=== PATIENT | female | born 1955 | race Caucasian/White ===

== ENCOUNTER → 2019-12-19 08:12 | Outpatient (CLI) | payer BC, SELFPAY ==
--- NOTE | 2019-12-19 08:14 | CT_ITS ---
PROCEDURE: CT LUNG SCREENING CLINICAL INDICATION: CURRENT TOBACO USE Thirty pack-year smoking history, asymptomatic for lung cancer COMPARISON: No exams were available for comparison TECHNIQUE: The exam was performed on a GE Light Speed [address] scanner using 2.90 mGy CTDI. A low dose helical CT CHEST was performed on a multi-detector scanner. All CT scans at the facility use one or more dose reduction, viz: automated exposure control, ma/kV adjustment per patient size (including targeted exams where dose is matched to indication, i.e. head), or iterative reconstruction technique. The LDCT was performed in a facility that meets the criteria for the screening program. Data regarding this exam was submitted to [employer] which is an approved registry. The order for this exam indicates that it came as a result of a lung cancer screening counseling shard decision-making visit that included all the elements required of such a visit including smoking cessation. The radiologist interpreting this exam meets the [facility] criteria for the LDCT lung cancer screening program. The exam is reported using the Lung-RADS classification scale and reported to the ACR registry. NOTE: This study was performed for the specific purposes of lung cancer screening and is not an alternative to diagnostic chest CT. RADIATION DOSE: CTDI vol(CT dose Index-volume) = 2.90mG DLP (Dose Length Product) = 99.77 mGcm FINDINGS: COPD with centrilobular emphysema. 3 mm noncalcified nodule right upper lobe series 4, image 43. 4 mm noncalcified nodule right upper lobe series 4, image 31. Atelectatic or fibrotic changes within the lower lobes. OTHER FINDINGS: No other pertinent findings evident. IMPRESSION: Lung rads category 2 benign findings. COPD with centrilobular emphysema Recommend 12 month LDCT follow-up Dictated by: Sebastian Jennings MD 12/23/2019 14:02 Electronically signed by Sebastian Jennings MD in [place] 12/23/2019 14:02
== END ==
PROVIDERS: PCP Internal Medicine Adolescent Medicine; Visit Provider Internal Medicine Adolescent Medicine
DX: Z87.891 Personal history of nicotine dependence (principal); Z12.2 Encounter for screening for malignant neoplasm of respiratory organs

== ENCOUNTER → 2020-03-19 09:37 | Outpatient (CLI) | payer BC, SELFPAY ==
--- NOTE | 2020-03-19 09:43 | XR_ITS ---
PROCEDURE: XR DEXA AXIAL SKELETON CLINICAL HISTORY: MODERATE OSTEOPENIA COMPARISON: No exams were available for comparison FINDINGS: Total right femur density is 0.625 grams/centimeters sq with a T-score of -2.6 Total left femur density is 0.619 grams/centimeters sq with T-score -2.6 L1-L4 density is 1.203 grams/centimeters sq with a T-score of 1.4 IMPRESSION: Osteoporosis with high fracture risk. Treatment advised. Suggest follow-up exam in 1 year Dictated by: Sebastian Jennings MD 03/22/2020 05:40 Electronically signed by Sebastian Jennings MD in [place] 03/22/2020 05:40
== END ==
PROVIDERS: PCP Internal Medicine Adolescent Medicine; Visit Provider Internal Medicine Adolescent Medicine
DX: M85.89 Other specified disorders of bone density and structure, multiple sites (principal)
CPT/HCPCS: 77080

== ENCOUNTER → 2020-06-21 09:18 | Outpatient (CLI) | payer BC, SELFPAY ==
--- NOTE | 2020-06-21 09:23 | MM_ITS ---
PROCEDURE: MM DIG SCREENING MAMM BI W/CAD Referring Doctor: Chi Pimentel Patient Age:64Y CLINICAL INDICATION: SCREENING no hormones but no new complaints. Family history: Maternal grandmother breast cancer age 80 COMPARISON: MG MAMMOGRAM DIGITAL SCREEN from 04/14/2010 MG MAMMO Digital Screening Bilateral from 09/11/2011 MG MAMMO Digital Screening Bilateral from 11/04/2012 MG MAMMO Digital Screening Bilateral from 02/02/2014 MG MAMMO Digital Screening Bilateral from 02/21/2015 MG MAMMO Digital Screening Bilateral from 03/20/2016 MG MAMMO Digital Screening Bilateral from 05/07/2017 MG MAMMO Digital Screening Bilateral from 05/17/2018 MG 3DSCRNBIL from 05/18/2019 TECHNIQUE: Standard CC and MLO images were obtained. R2 CAD reviewed. Bilateral digital breast tomosynthesis included. FINDINGS: . Moderate density heterogeneous breast bilaterally with stable mild asymmetric and architecture. Prior films are helpful in supporting stability of overall appearance and the stable mild asymmetry. No new dominant or suspicious mass. No suspicious calcifications. CAD highlights no areas of concern either breast Right breast: No new findings of significant concern Small area focal fibroglandular tissue seen on MLO view deep breast likely located laterally appears similar 2018, 2016, with similar area of density even back to 2012, 2010 MLO view... Also note overlapping densities appear contributing this overall area mild asymmetric density MLO tomosynthesis image set. The right CC view appears similar and stable since 2016 2014 cc view studies; overall no new focal area of significant concern. Overall follow-up 1 year adequate Left breast: No new areas of concern. Stable left mammogram. However follow-up 1 year left breast would be emphasized and encouraged. IMPRESSION: Stable bilateral mammogram Right breast: Stable with no new findings of significant concern . Left breast, stable. follow-up mammogram in 1 year recommended and would be encouraged, to further support stability in this moderately dense heterogeneous breast BI-RAD Category: 2 Benign Finding(s) FOLLOW-UP: 1YR 1 Year Follow-up Follow-up not over 1 year recommended (A letter has been sent to the patient regarding results of the study.) Dictated by: Fab Garcia MD 06/27/2020 12:06 Fab Garcia MD in [place] 06/27/2020 12:06
== END ==
PROVIDERS: PCP Internal Medicine Adolescent Medicine; Visit Provider Internal Medicine Adolescent Medicine
DX: Z12.31 Encounter for screening mammogram for malignant neoplasm of breast (principal)
CPT/HCPCS: 77063; 77067

== ENCOUNTER → 2020-08-20 10:46 | Outpatient (CLI) | payer BC, SELFPAY ==
[2020-08-21 09:05] LABS: Covid-19 Nasal PCR Sendout Lex NOT DETECTED
== END ==
PROVIDERS: PCP Internal Medicine Adolescent Medicine; Visit Provider Internal Medicine Adolescent Medicine
DX: Z03.818 Encounter for observation for suspected exposure to other biological agents ruled out (principal); R05 Cough
CPT/HCPCS: U0004

== ENCOUNTER → 2020-12-20 13:07 | Outpatient (CLI) | payer BC, SELFPAY ==
[2020-12-20 13:29] LABS: Basophils # 0.1 K/mm3 (0-0.2); Basophils % 0.9 % (0.1-2.0); Eosinophils # 0.4 K/mm3 (0.0-0.4); Eosinophils % 4.8 % (0.1-12.0); Hematocrit 47.9 % (37.0-47.0); Hemoglobin 16.2 g/dL (12.2-16.2); Lymphocytes # 2.5 K/mm3 (0.7-4.5); Mean Corpuscular HGB Conc 33.8 g/dL (31.8-35.4); Mean Corpuscular Hemoglobin 34.1 pg (27.0-31.2); Mean Corpuscular Volume 100.9 fl (81-99); Mean Platelet Volume 8.2 fl (7.4-10.4); Monocytes # 0.6 K/mm3 (0.1-1.0); Monocytes % 7.8 % (1.7-9.3); Neutrophils % 53.4 % (37.0-80.0); Platelet Count 261 K/mm3 (142-424); Red Blood Count 4.75 M/mm3 (4.20-5.40); Red Cell Distribution Width 13.2 % (11.5-17.5); White Blood Count 7.4 K/mm3 (4.8-10.8)
[2020-12-20 14:08] LABS: Chloride 102 mmol/L (98-107); Potassium 4.7 mmoL/L (3.5-5.1); Sodium 138 mmol/L (136-145)
[2020-12-20 14:11] LABS: Alanine Aminotransferase 16 U/L (12-78); Albumin Level 4.8 g/dl (3.5-5.0); Albumin/Globulin Ratio 1.5 (1.1-1.8); Alkaline Phosphatase 112 U/L (38-126); Anion Gap 9.7 mEq/L (5-15); Aspartate Amino Transferase 29 U/L (14-36); Bilirubin,Total 0.7 mg/dl (0.2-1.3); Blood Urea Nitrogen 15 mg/dl (7-17); Calcium 11.2 mg/dl (8.4-10.2); Carbon Dioxide 31 mmol/L (22.0-30.0); Estimated Glomerular Filt Rate 63 ml/min (>60); GFR (African American) 76 ML/MIN (>60); Globulin 3.2 g/dL (1.3-3.2); Glucose 101 mg/dl (74-100)
[2020-12-20 14:29] LABS: 25-OH Vitamin D, Total 55.2 ng/mL (30-100)
[2020-12-20 14:42] LABS: Thyroid Stimulating Hormone 6.43 uIU/mL (0.465-4.68)
== END ==
PROVIDERS: Visit Provider Internal Medicine Adolescent Medicine
DX: I10 Essential (primary) hypertension (principal); E03.9 Hypothyroidism, unspecified; M81.0 Age-related osteoporosis without current pathological fracture
CPT/HCPCS: 36415; 80053; 82306; 84443; 85025

== ENCOUNTER → 2021-09-11 10:18 | Outpatient (CLI) | payer BC, SELFPAY ==
--- NOTE | 2021-09-11 10:21 | MM_ITS ---
PROCEDURE INFORMATION: Exam: MG Bilateral Screening 3D Mammography Exam date and time: 09/11/2021 10:21 AM Age: 65 years old Clinical indication: Encounter for screening mammogram for malignant neoplasm of breast TECHNIQUE: Imaging protocol: Bilateral screening tomosynthesis and 2D mammography including computer-aided detection (CAD) when performed. COMPARISON: 1. MG MM DIG SCREENING MAMM BI W/CAD 06/21/2020 9:40 AM 2. MG 3DSCRNBIL 05/18/2019 10:54 AM FINDINGS: MAMMOGRAPHY: Breast composition: The breast tissue is composed of scattered areas of fibroglandular density. Mass: None. Architectural distortion: None. Calcifications: No suspicious calcifications. Asymmetric density: None. Skin thickening: None. Axillary adenopathy: None. IMPRESSION: No mammographic evidence of malignancy. Annual screening is recommended unless otherwise clinically indicated. ASSESSMENT: BI-RADS Category 1: Negative
== END ==
PROVIDERS: PCP Internal Medicine Adolescent Medicine; Visit Provider Internal Medicine Adolescent Medicine
DX: Z12.31 Encounter for screening mammogram for malignant neoplasm of breast (principal)
CPT/HCPCS: 77063; 77067

== ENCOUNTER → 2022-01-28 08:16 | Outpatient (CLI) | payer MEDICARE, SELFPAY ==
--- NOTE | 2022-01-28 08:20 | CT_ITS ---
FINAL REPORT CLINICAL HISTORY: CURRENT SMOKER COMPARISON: December 19, 2019 FINDINGS: Low-Dose Chest CT CTDI vol (mGy): 2.90 DLP (mGy-cm): 110.20 Axial images were obtained from the lung apex to the mid abdomen by computed tomography. Low-dose protocol was utilized. FINDINGS: CHEST: There is no axillary adenopathy. There is no hilar or mediastinal adenopathy. The heart is proper size. There is no pericardial or pleural effusion. Limited images of the upper abdomen are unremarkable. Lung window images demonstrate mild changes of emphysema. There is mild scarring. There is a stable 3 mm right upper lobe nodule on image 34. There is also a stable 3 mm nodule in the right upper lobe on image 53. There is a calcified granuloma in the right upper lobe. No new mass or nodule is identified.. IMPRESSION: Lung RADS category 1. Recommend 12 month follow-up low-dose chest CT. Reviewed, Interpreted and Dictated by Kirill Cook III, MD Transcribed by Reema Ayala Authenticated by Kirill Cook III, MD on 01/28/2022 10:15:08 AM [facility]
== END ==
PROVIDERS: PCP Internal Medicine Adolescent Medicine; Visit Provider Internal Medicine Adolescent Medicine
DX: Z87.891 Personal history of nicotine dependence (principal)
CPT/HCPCS: 71271

== ENCOUNTER → 2022-10-23 10:22 | Outpatient (CLI) | payer MEDICARE, SELFPAY ==
--- NOTE | 2022-10-23 10:26 | MM_ITS ---
PROCEDURE INFORMATION: Exam: MG Bilateral Screening 3D Mammography Exam date and time: 10/23/2022 10:17 AM Age: 66 years old Clinical indication: Screening examination. Her maternal grandmother had breast cancer. TECHNIQUE: Imaging protocol: Bilateral Screening tomosynthesis and 2D mammography including computer-aided detection (CAD) when performed. COMPARISON: 1. MG MM DIG SCREENING MAMM BI W/CAD 09/11/2021 10:27 AM 2. MG MM DIG SCREENING MAMM BI W/CAD 06/21/2020 9:40 AM 3. MG 3DSCRNBIL 05/18/2019 10:54 AM FINDINGS: MAMMOGRAPHY: Breast composition: There are scattered areas of fibroglandular density. Mass: None. Architectural distortion: None. Calcifications: No suspicious calcifications. Asymmetric density: None. Skin thickening: None. Axillary adenopathy: None. IMPRESSION: No mammographic evidence of malignancy. Annual screening is recommended unless otherwise clinically indicated. ASSESSMENT: BI-RADS Category 1: Negative
== END ==
PROVIDERS: PCP Internal Medicine Adolescent Medicine; Visit Provider Internal Medicine Adolescent Medicine
DX: Z12.31 Encounter for screening mammogram for malignant neoplasm of breast (principal)
CPT/HCPCS: 77063; 77067

== ENCOUNTER → 2023-02-04 11:25 | Outpatient (CLI) | payer MEDICARE, SELFPAY ==
--- NOTE | 2023-02-04 11:30 | CT_ITS ---
FINAL REPORT TECHNIQUE: Axial images were obtained from the lung apex to the mid abdomen by computed tomography. This study was performed with techniques to keep radiation doses as low as reasonably achievable (ALARA). Individualized dose reduction techniques using automated exposure control or adjustment of mA and/or kV according to the patient's size were employed. CLINICAL HISTORY: SCREENING smokes 1/2 pk per day x 40 yrs COMPARISON: 01/28/2022 FINDINGS: CHEST CT LOW DOSE CTDI vol (mGy): 2.90 DLP (mGy-cm): 116.20 There is no axillary adenopathy. There is no hilar or mediastinal adenopathy. The heart is normal in size. There is no pericardial or pleural effusion. Lung window images demonstrate no suspicious infiltrate or nodule. There is mild scarring and mild emphysema. Limited images of the upper abdomen demonstrates mild left renal scarring. IMPRESSION: Lung RADS category 1. Recommend 12 month follow-up low-dose chest CT. Reviewed, Interpreted and Dictated by Kirill Cook III, MD Transcribed by Esther Martinez Authenticated and [facility]
== END ==
PROVIDERS: PCP Internal Medicine Adolescent Medicine; Visit Provider Nurse Practitioner Family
DX: Z87.891 Personal history of nicotine dependence (principal); Z12.2 Encounter for screening for malignant neoplasm of respiratory organs
CPT/HCPCS: 71271

== ENCOUNTER → 2023-02-10 09:25 | Outpatient (CLI) | payer MEDICARE, SELFPAY ==
--- NOTE | 2023-02-10 09:30 | XR_ITS ---
FINAL REPORT TECHNIQUE: Bone densitometry calculations of the lumbar spine and left hip were obtained. CLINICAL HISTORY: POST MENOPAUSAL COMPARISON: 03/19/2020 FINDINGS: DEXA BONE DENSITY AXIAL SKELETON Using L1-4, the bone mineral density of the spine is 1.186 g/cm2, corresponding to T-score of 1.3. Note these values may be falsely elevated secondary to hypertrophic change. Previously measured 1.203 g/cm2, corresponding to T-score of 1.4. Using the left hip, the bone mineral density of the total hip is 0.584 g/cm2, corresponding to a T-score of -2.9. Previously measured 0.619 g/cm2, corresponding to T-score of -2.6. NOTE: T-score: Standard deviation compared with peak bone mass of young adult mean. *Following the recommendations of the International Society of Bone densitometry, classification of hip BMD is based on the lower of two T-scores; total hip or femoral neck. IMPRESSION: Osteoporosis: Lowest T-score is at or below -2.5. This patient's T-score meets the World Health Organization criteria for osteoporosis. Reviewed, Interpreted and Dictated by Kirill Cook III, MD Transcribed by Reema Ayala Authenticated and [facility]
== END ==
PROVIDERS: PCP Internal Medicine Adolescent Medicine; Visit Provider Nurse Practitioner Family
DX: Z78.0 Asymptomatic menopausal state (principal)
CPT/HCPCS: 77080

== ENCOUNTER → 2023-04-21 13:05 | Outpatient (CLI) | payer MEDICARE, SELFPAY ==
--- NOTE | 2023-04-21 13:10 | XR_ITS ---
FINAL REPORT CLINICAL HISTORY: COPD EXACERBATION FINDINGS: TWO-VIEW CHEST The heart size is normal. The mediastinum is normal. The lungs are hyperinflated consistent with COPD. There is no pneumothorax. IMPRESSION: No acute cardiopulmonary process. Reviewed, Interpreted and Dictated by Kirill Cook III, MD Transcribed by Esther Martinez Authenticated and [facility]
== END ==
PROVIDERS: PCP Internal Medicine Adolescent Medicine; Visit Provider Physician Assistant
DX: J44.1 Chronic obstructive pulmonary disease with (acute) exacerbation (principal)
CPT/HCPCS: 71046

== ENCOUNTER → 2023-04-29 09:21 | Outpatient (CLI) | payer MEDICARE, SELFPAY ==
[2023-04-29 09:48] LABS: Microscopic, Urine URINE MICROSCOPIC (MICROSCOPIC)
[2023-04-29 10:06] LABS: Basophils % 0.8 % (0.1-2.0); Eosinophils # 0.4 K/mm3 (0.0-0.4); Hematocrit 48.5 % (37.0-47.0); Hemoglobin 15.4 g/dL (12.2-16.2); Lymphocytes # 2.2 K/mm3 (0.7-4.5); Lymphocytes % 36.7 % (10-50); Mean Corpuscular HGB Conc 31.8 g/dL (31.8-35.4); Mean Corpuscular Hemoglobin 31.8 pg (27.0-31.2); Mean Platelet Volume 7.9 fl (7.4-10.4); Monocytes # 0.5 K/mm3 (0.1-1.0); Monocytes % 8.8 % (1.7-9.3); Neutrophils # 2.8 K/mm3 (1.8-7.8); Neutrophils % 47.8 % (37.0-80.0); Platelet Count 219 K/mm3 (142-424); Red Blood Count 4.84 M/mm3 (4.20-5.40); Red Cell Distribution Width 13.5 % (11.5-17.5); White Blood Count 5.9 K/mm3 (4.8-10.8)
[2023-04-29 10:16] LABS: Creatinine,Urine Random 85 mg/dL (Not Estab.)
[2023-04-29 10:20] LABS: Bacteria,Urine Trace /lpf
[2023-04-29 10:23] LABS: Appearance,Urine CLEAR (Clear); Bilirubin,Urine Negative (Negative); Blood, Urine Negative (Negative); Color,Urine YELLOW (Yellow); Glucose,Urine (UA) Negative (Negative); Ketones,Urine Negative (Negative); Leukocyte Esterase,Urine Negative (Negative); Nitrate,Urine Negative (Negative); Protein,Urine Negative (Negative); Urobilinogen,Urine 0.2 EU/dl (0.2)
[2023-04-29 10:36] LABS: Albumin Level 3.9 g/dl (3.5-5.0); Anion Gap 10.1 mEq/L (5-15); Blood Urea Nitrogen 15 mg/dl (7-17); Calcium 9.2 mg/dl (8.4-10.2); Carbon Dioxide 29 mmol/L (22.0-30.0); Chloride 105 mmol/L (98-107); Estimated Glomerular Filt Rate 72 ml/min (>60); GFR (African American) 87 ML/MIN (>60); Glucose 97 mg/dl (74-100); Phosphorous 3.6 mg/dl (2.5-4.5); Potassium 5.1 mmoL/L (3.5-5.1); Sodium 139 mmol/L (136-145)
[2023-04-29 10:48] LABS: Intact Parathyroid Hormone 82.5 pg/mL (7.5-53.5)
[2023-04-29 10:53] LABS: 25-OH Vitamin D, Total 71.9 ng/mL (30-100)
[2023-05-03 07:54] LABS: C-Telopeptide Serum 353 pg/mL (.)
[2023-05-04 01:12] LABS: Tandem-R Ostase 19.2 ug/L (.)
[2023-05-04 14:12] LABS: Osteocalcin 12.4 ng/mL (.)
== END ==
PROVIDERS: PCP Internal Medicine Adolescent Medicine; Visit Provider Nurse Practitioner
DX: M81.0 Age-related osteoporosis without current pathological fracture (principal)
CPT/HCPCS: 36415; 80069; 81001; 82306; 82523; 82570; 83937; 83970; 84080; 84155; 85025

== ENCOUNTER → 2023-05-10 10:43 | Outpatient (POV) | payer MEDICARE, SELFPAY | PROVIDERS: Visit Provider Nurse Practitioner | DX: Z00.00 Encounter for general adult medical examination without abnormal findings (principal) ==

== ENCOUNTER 2023-11-04 10:36 | Outpatient (CLI) | payer MEDICARE, SELFPAY ==
--- NOTE | 2023-11-04 10:46 | MM_ITS ---
PROCEDURE INFORMATION: Exam: MG Bilateral Screening 3D Mammography Exam date and time: 11/04/2023 10:48 AM Age: 67 years old Clinical indication: Screening Mammogram TECHNIQUE: Imaging protocol: Bilateral Screening tomosynthesis and 2D mammography including computer-aided detection (CAD) when performed. COMPARISON: 1. MG MM DIG SCREENING MAMM BI W/CAD 10/23/2022 10:17 AM 2. MG MM DIG SCREENING MAMM BI W/CAD 09/11/2021 10:27 AM 3. MG MM DIG SCREENING MAMM BI W/CAD 06/21/2020 9:40 AM 4. MG 3DSCRNBIL 05/18/2019 10:54 AM FINDINGS: MAMMOGRAPHY: Breast composition: There are scattered areas of fibroglandular density. Mass: None. Architectural distortion: No new or suspicious architectural distortion. Calcifications: No new or suspicious calcifications are present Asymmetric density: No new or suspicious asymmetric density is present Skin thickening: None. Axillary adenopathy: None. IMPRESSION: No mammographic evidence of malignancy. Recommend annual screening mammography unless otherwise clinically indicated. ASSESSMENT: BI-RADS category 1: Negative
== END 2023-11-04 23:59 ==
LOC: RAD 10:36
PROVIDERS: PCP Internal Medicine Adolescent Medicine; Visit Provider Internal Medicine Adolescent Medicine
DX: Z12.31 Encounter for screening mammogram for malignant neoplasm of breast (principal)
CPT/HCPCS: 77063; 77067

== ENCOUNTER 2023-11-11 08:14 | Outpatient (CLI) | payer MEDICARE, SELFPAY ==
--- NOTE | 2023-11-11 08:23 | XR_ITS ---
FINAL REPORT CLINICAL HISTORY: Right foot pain 2nd proximal phalanx pain COMPARISON: None FINDINGS: RIGHT FOOT: Three views of the right foot were obtained. There is no acute fracture or dislocation. There is a small plantar calcaneal spur. There is mild degenerative change at the first MTP. There is no soft tissue abnormality. IMPRESSION: No acute bony abnormality. Reviewed, Interpreted and Dictated by Kirill Cook III, MD Transcribed by Bailey Llanes Authenticated and [facility]
--- NOTE | 2023-11-11 08:23 | XR_ITS ---
FINAL REPORT CLINICAL HISTORY: foot pain Lt 4th toe turning medially, pain at MTP joint plantar surface COMPARISON: None FINDINGS: LEFT FOOT: Three views of the left foot were obtained. There is no acute fracture or dislocation. There is a small plantar calcaneal spur. There is medial angulation of the distal fourth digit. There is no soft tissue abnormality. IMPRESSION: No acute bony abnormality. Reviewed, Interpreted and Dictated by Kirill Cook III, MD Transcribed by Bailey Llanes Authenticated and . [facility]
== END 2023-11-11 23:59 ==
LOC: RAD 08:16
PROVIDERS: PCP Internal Medicine Adolescent Medicine; Visit Provider Podiatrist
DX: M79.671 Pain in right foot (principal); M79.672 Pain in left foot
CPT/HCPCS: 73630

== ENCOUNTER 2024-05-19 09:26 | Outpatient (CLI) | payer MEDICARE, SELFPAY ==
[2024-05-19 09:41] LABS: Microscopic, Urine URINE MICROSCOPIC (MICROSCOPIC)
[2024-05-19 10:01] LABS: Hematocrit 44.1 % (37.0-47.0); Hemoglobin 15.4 g/dL (12.2-16.2); Mean Corpuscular Hemoglobin 36.1 pg (27.0-31.2); Mean Corpuscular Volume 103.2 fl (81-99); Platelet Count 202 K/mm3 (142-424); Red Blood Count 4.28 M/mm3 (4.20-5.40); Red Cell Distribution Width 13.8 % (11.5-17.5)
[2024-05-19 10:15] LABS: Appearance,Urine CLEAR (Clear); Bilirubin,Urine Negative (Negative); Blood, Urine Negative (Negative); Color,Urine YELLOW (Yellow); Glucose,Urine (UA) Negative (Negative); Ketones,Urine Negative (Negative); Leukocyte Esterase,Urine Negative (Negative); Nitrate,Urine Negative (Negative); Protein,Urine Negative (Negative); Specific Gravity, Urine 1.015 (1.005-1.030); Urobilinogen,Urine 0.2 EU/dl (0.2)
[2024-05-19 10:34] LABS: Bacteria,Urine Trace /lpf; Creatinine,Urine Random 95 mg/dL (Not Estab.)
[2024-05-19 10:47] LABS: Anion Gap 7.7 mEq/L (5-15); Blood Urea Nitrogen 10 mg/dl (7-17); Calcium 9.5 mg/dl (8.4-10.2); Carbon Dioxide 26 mmol/L (22.0-30.0); Chloride 103 mmol/L (98-107); Estimated Glomerular Filt Rate 83 ml/min (>60); GFR (African American) 101 ML/MIN (>60); Glucose 91 mg/dl (74-100); Phosphorous 3.7 mg/dl (2.5-4.5); Potassium 4.7 mmoL/L (3.5-5.1); Sodium 132 mmol/L (136-145)
[2024-05-19 10:59] LABS: Intact Parathyroid Hormone 32.8 pg/mL (7.5-53.5)
[2024-05-19 11:03] LABS: 25-OH Vitamin D, Total 67.7 ng/mL (30-100)
[2024-05-26 20:09] LABS: C-Telopeptide Serum 205 pg/mL (.)
== END 2024-05-19 23:59 | disposition home or self-care (01) ==
LOC: LAB 09:27
PROVIDERS: PCP Internal Medicine Adolescent Medicine; Visit Provider Nurse Practitioner
DX: I10 Essential (primary) hypertension (principal); M81.0 Age-related osteoporosis without current pathological fracture; F17.210 Nicotine dependence, cigarettes, uncomplicated
CPT/HCPCS: 36415; 80069; 81001; 82306; 82523; 82570; 83937; 83970; 84156; 85014; 85018; 85048; 85049

== ENCOUNTER 2024-05-24 09:15 | Outpatient (CLI) | payer MEDICARE, SELFPAY ==
--- NOTE | 2024-05-24 09:25 | XR_ITS ---
FINAL REPORT TECHNIQUE: Bone densitometry calculations of the lumbar spine and left hip were obtained. CLINICAL HISTORY: SCREENING COMPARISON: 02/10/2023 FINDINGS: Using L1-4, the bone mineral density of the spine is 1.236 g/cm2, corresponding to T-score of 1.7. Using the left hip, the bone mineral density of the femoral neck is 0.596 g/cm2, corresponding to a T-score of -2.8. NOTE: T-score: Standard deviation compared with peak bone mass of young adult mean. *Following the recommendations of the International Society of Bone densitometry, classification of hip BMD is based on the lower of two T-scores; total hip or femoral neck. IMPRESSION: Diminished bone mineral density of the left hip consistent with osteoporosis. There is normal bone density of the lumbar spine, although this may be artificially elevated secondary to bony sclerosis. Reviewed, Interpreted and Dictated by Gregg Sánchez MD Transcribed by Kassandra Gusman Authenticated and [facility]
[2024-05-26 16:13] LABS: Osteocalcin 11.1 ng/mL (5.0-29.5)
== END 2024-05-24 23:59 | disposition home or self-care (01) ==
PROVIDERS: PCP Internal Medicine Adolescent Medicine; Visit Provider Nurse Practitioner
DX: M81.0 Age-related osteoporosis without current pathological fracture (principal)
CPT/HCPCS: 77080; 83937

== ENCOUNTER 2024-08-02 12:05 | Outpatient (CLI) | payer MEDICARE, SELFPAY ==
--- NOTE | 2024-08-02 12:27 | XR_ITS ---
FINAL REPORT CLINICAL HISTORY: Low back pain COMPARISON: None FINDINGS: 5 views of the lumbar spine were obtained. There is no evidence of fracture or dislocation. The vertebral alignment is normal. Levoscoliosis is noted. There is moderate and severe degenerative change. Disc space narrowing is noted at multiple levels. There is facet arthropathy at multiple levels. There are mild vascular calcifications. No acute paraspinous soft tissue abnormalities identified. IMPRESSION: Moderate and severe degenerative change without acute bony abnormality. Reviewed, Interpreted and Dictated by Kirill Cook III, MD Transcribed by Bailey Llanes Authenticated and . [facility]
--- NOTE | 2024-08-02 12:27 | XR_ITS ---
FINAL REPORT CLINICAL HISTORY: Right hip pain COMPARISON: None FINDINGS: RIGHT HIP Two views of the right hip with an AP view of the pelvis demonstrate no acute fracture or dislocation. There is moderate to severe degenerative change. The visualized bony structures are well aligned. No soft tissue abnormality is seen. IMPRESSION: Moderate to severe degenerative change without acute bony abnormality. Reviewed, Interpreted and Dictated by Kirill Cook III, MD Transcribed by Bailey Llanes Authenticated and [facility]
--- NOTE | 2024-08-02 12:27 | XR_ITS ---
FINAL REPORT CLINICAL HISTORY: PAIN COMPARISON: None FINDINGS: SACROILIAC JOINTS SERIES Three views were obtained. There is no acute fracture or dislocation. There is mild degenerative change. The visualized bony structures are well aligned. No soft tissue abnormality is seen. IMPRESSION: Mild degenerative change without acute bony abnormality. Reviewed, Interpreted and Dictated by Kirill Cook III, MD Transcribed by Bailey Llanes Authenticated and [facility]
--- NOTE | 2024-08-02 12:27 | XR_ITS ---
FINAL REPORT CLINICAL HISTORY: Left hip pain COMPARISON: None FINDINGS: LEFT HIP: Two views of the left hip with an AP view of the pelvis demonstrate no acute fracture or dislocation. There is mild degenerative change. The visualized bony structures are well aligned. No soft tissue abnormality is seen. IMPRESSION: Mild degenerative change without acute bony abnormality. Reviewed, Interpreted and Dictated by Kirill Cook III, MD Transcribed by Bailey Llanes Authenticated and [facility]
== END 2024-08-02 23:59 | disposition home or self-care (01) ==
PROVIDERS: PCP Internal Medicine Adolescent Medicine; Visit Provider Internal Medicine Adolescent Medicine
DX: M25.551 Pain in right hip (principal); M81.0 Age-related osteoporosis without current pathological fracture
CPT/HCPCS: 72110; 72202; 73502

== ENCOUNTER 2024-08-16 10:44 | Outpatient (CLI) | payer MEDICARE, SELFPAY ==
--- NOTE | 2024-08-16 10:45 | CT_ITS ---
FINAL REPORT TECHNIQUE: Thin section axial images were obtained from the lung apices to the upper abdomen by computed tomography. Reformatted images were obtained and reviewed. This study was performed with techniques to keep radiation doses al low as reasonably achievable (ALARA). Individualized dose reduction techniques using automated exposure control or adjustment of mA and/or kV according to the patient's size were employed. CLINICAL HISTORY: current smoker 1/2 ppd x 40 years COMPARISON: 02/04/2023 FINDINGS: CHEST CT LOW DOSE CTDI vol (mGy): 2.9 DLP (mGy-cm): 114.64 There is no axillary adenopathy. There is no mediastinal or hilar mass or adenopathy. The heart is normal in size. There is no pericardial or pleural effusion. There is mild emphysema and mild pulmonary scarring. Lung window images demonstrate several new 2 mm left lower lobe nodules seen on series 3 images 69 through 70. There is also a new 3 mm left lower lobe nodule on series 3 image 39. Limited images of the upper abdomen are unremarkable. IMPRESSION: New left lower lobe nodules as above. Lung-RADS category 2. Recommend 12 month follow up low dose chest CT. Reviewed, Interpreted and Dictated by Kirill Cook III, MD Transcribed by Bailey Llanes Authenticated and [facility]
== END 2024-08-16 23:59 | disposition home or self-care (01) ==
LOC: RAD 10:44
PROVIDERS: PCP Internal Medicine Adolescent Medicine; Visit Provider Internal Medicine Adolescent Medicine
DX: Z87.891 Personal history of nicotine dependence (principal)
CPT/HCPCS: 71271

== ENCOUNTER 2024-11-20 14:42 | Outpatient (CLI) | payer MEDICARE, SELFPAY ==
--- NOTE | 2024-11-20 14:46 | MM_ITS ---
PROCEDURE INFORMATION: Exam: MG Bilateral Screening 3D Mammography Exam date and time: 11/20/2024 2:28 PM Age: 68 years old Clinical indication: Screening examination. Her maternal grandmother had breast cancer. TECHNIQUE: Imaging protocol: Bilateral Screening tomosynthesis and 2D mammography including computer-aided detection (CAD) when performed. COMPARISON: 1. MG MM DIG SCREENING MAMM BI W/CAD 11/04/2023 10:48 AM 2. MG MM DIG SCREENING MAMM BI W/CAD 10/23/2022 10:17 AM 3. MG MM DIG SCREENING MAMM BI W/CAD 09/11/2021 10:27 AM 4. MG MM DIG SCREENING MAMM BI W/CAD 06/21/2020 9:40 AM FINDINGS: MAMMOGRAPHY: Breast composition: There are scattered areas of fibroglandular density. Mass: No suspicious mass. Architectural distortion: None. Calcifications: No suspicious calcifications. Asymmetric density: None. Skin thickening: None. Axillary adenopathy: None. IMPRESSION: No mammographic evidence of malignancy. Annual screening is recommended unless otherwise clinically indicated. ASSESSMENT: BI-RADS Category 1: Negative.
--- NOTE | 2024-11-20 17:08 | HMH.ITSTN ---
pt has right knee hardware that caused artifact , per ckr radiologist :unable to read images
== END 2024-11-20 23:59 | disposition home or self-care (01) ==
LOC: RAD 14:43
PROVIDERS: PCP Internal Medicine Adolescent Medicine; Visit Provider Internal Medicine Adolescent Medicine
DX: Z12.31 Encounter for screening mammogram for malignant neoplasm of breast (principal)
CPT/HCPCS: 77063; 77067

== ENCOUNTER 2024-12-20 10:54 | Outpatient (CLI) | payer MEDICARE, SELFPAY ==
--- NOTE | 2024-12-20 10:56 | CT_ITS ---
FINAL REPORT TECHNIQUE: Thin section axial CT images with coronal and sagittal reformats were performed. This study was performed with techniques to keep radiation doses as low as reasonably achievable (ALARA). Individualized dose reduction techniques using automated exposure control or adjustment of mA and/or kV according to the patient''s size were employed. CLINICAL HISTORY: HX OF KNEE REPLACEMENT, continued pain. we used HiMAR per doctor request to better evaluate knee replacement. FINDINGS: There are post arthroplasty changes. The bones are osteopenic. No fracture is identified. No lucency is seen to indicate hardware loosening. There is no bone destruction. No abnormal joint effusion identified. IMPRESSION: Normal post arthroplasty changes without evidence of complication. Reviewed, Interpreted and Dictated by Brina Tee MD Transcribed by Esther Martinez Authenticated and [facility]
== END 2024-12-20 23:59 | disposition home or self-care (01) ==
LOC: RAD 10:54
PROVIDERS: PCP Internal Medicine Adolescent Medicine; Visit Provider Nurse Practitioner Family
DX: M17.0 Bilateral primary osteoarthritis of knee (principal); Z96.651 Presence of right artificial knee joint
CPT/HCPCS: 73700

== ENCOUNTER 2025-05-02 09:05 | Outpatient (CLI) | payer MEDICARE, SELFPAY ==
--- OUTSIDE RECORDS SUMMARY | 2025-03-21 10:30 | XMS_ITS ---
Author Organization [facility] Address [address] [place] [address] Care Team Providers Care Manager Book Name Role Phone Malena Montejo Primary Care Provider Héctor Medeiros [phone] Allergies No Known Allergies REASON FOR VISIT medicare wellness Medications Medication SIG (Take, Route, Frequency, Duration) Notes Start Date End Date Status Albuterol Sulfate HFA 108 (90 Base) MCG/ACT 2 puffs Inhalation every 4 hrs; Duration: 30 days As needed 02/14/2025 Active Losartan Potassium 100 MG 1 tab(s) orall y once a day; Duration: 90 days Active Levothyroxine Sodium 112 MCG 1 tab(s) or ally once a day; Duration: 90 days Active Singulair 10 MG 1 tab(s) orally once a day; Duration: 90 days Active Atorvastatin Calcium 20 MG 1 tab(s) oral ly once a day; Duration: 90 days Active Omeprazole 40 MG 1 cap(s) orally once a day; Duration: 90 days Active Spiriva Respimat 1.25 MCG/ACT INHALE TWO PUFFS BY MOUTH EVERY DAY; Duration: 90 days Active Tums 500 MG 1 tab(s) chewed once a day Active Rachael Allergy prn Acti ve Centrum Silver - 1 tab(s) chewed once a day Active ALBUTEROL (EQV-PROVENTIL HFA) 90 MCG/INH 2 PUFF(S) INHALED EVERY 6 HOURS; Duration: 30 DAYS prn 04/21/2023 Active Turmeric 500 MG 1 cap(s) orally once a day Active HAIR SKIN AND NAILS Active Ibandronate Sodium 150 MG 1 tab(s) orall y once a month Active Probiotic 10 Ultra Strength Active dexAMETHasone 0.5 MG/5ML 5cc prn Active Immunizations Vaccine Route Administration Date Status Comme nts PCV-21 (Pneumococcal conjugate 20) IM Intramuscular 03/21/2025 Administered Social History Tobacco Use: Social History Observation Description Date Details (start date - stop date) Current Smoker NA - NA Smoking: Question Answer Notes Are you a: current smoker How often do you smoke cigarettes? some days, bu t not every day How many cigarettes a day do you smoke? 5 or les s Additional Findings: Tobacco User Trivia l cigarette smoker (less than one cigarette/day) Vital Signs Temperature 97.6 degrees Fahrenheit 03/21/20 25 Blood pressure systolic 140 mm Hg 03/21/20 25 Blood pressure diastolic 82 mm Hg 025 Heart Rate 92 /min 03/21/2025 Height 5 ft 7 in in 03/21/2025 Weight 145.8 lbs 03/21/2025 BMI 22.83 kg/m2 03/21/2025 Encounters Encounter Location Date Provider Diagnosis [facility] IM PED [facility] [address] [place] [address] 03/21/2025 Héctor Medeiros Osteoporosis M81.0 ; Panlobular emphysema J43.1 ; Hypertension, essential I10 ; Hypothyroidism (acquired) E03.9 ; Encounter for immunization Z23 and Healthcare maintenance Z00.00 Assessments Encounter Date Diagnosis (ICD Code) Assessment Notes Treatment Notes Treatment Clinical Notes Section Notes 03/21/2025 Osteoporosis (ICD-10 - M81.0) -DEXA UTD as of April 2024, repeat in 1y -on Ibandronate monthly, cautioned on smoking cessation 03/21/2025 Panlobular emphysema (ICD-10 - J43.1) -last exacerbation a month ago, well recovered following steroids -using PRN albuterol 1x a month -first exacerbation in 2-3y, started w/allergy symptoms -Compliant on Spiriva 03/21/2025 Hypertension, essential (ICD-10 - I10) -BP elevated in office and on home readings- -150/140s systolic at home; as high as 160/100. -Has had a lot of stress w/sickness recently -Will double the losartan to 100mg and RTC 8 weeks w/BMP 03/21/2025 Hypothyroidism (acquired) (ICD-10 - E03.9) -stable on synthroid dose, TSH UTD 03/21/2025 Encounter for immunization (ICD-10 - Z23) 03/21/2025 Healthcare maintenance (ICD-10 - Z00.00) -Due for PCV 21, admin in office today 03/21/2025 Other -annual LDCT UTD, due in August -C- in 2018; due in 2028 -OV CA screening through [facility]- TVUS annual (10y going)- -pilot manager study -Mammograms: UTD as of last year, due this year -Paps: No hx of abnormal paps in several years (may have had HSV); last pap 1-2y ago. Has these done w/OPTOMETRIC TECH. Plan Of Treatment Medication Medication Name Sig Start Date Stop Date Notes Losartan Potassium 100 MG 1 tab(s) orall y once a day; Duration: 90 days Treatment Notes Assessment Notes Osteoporosis -DEXA UTD as of April 2024, repeat in 1y -on Ibandronate monthly, cautioned on smoking cessation Panlobular emphysema -last exacerbation a month ago, well recovered following steroids -using PRN albuterol 1x a month -first exacerbation in 2-3y, started w/allergy symptoms -Compliant on Spiriva Hypertension, essential -BP elevated in office and on home readings- -150/140s systolic at home; as high as 160/100. -Has had a lot of stress w/sickness recently -Will double the losartan to 100mg and RTC 8 weeks w/BMP Hypothyroidism (acquired) -stable on syn throid dose, TSH UTD Healthcare maintenance -Due for PCV 21, admin in office today Other -annual LDCT UTD, due in August - in 2018; due in 2028 -OV CA screening through [facility]- [facility] annual (10y going)- -pilot manager study -Mammograms: UTD as of last year, due this year -Paps: No hx of abnormal paps in several years (may have had HSV); last pap 1-2y ago. Has these done w/OPTOMETRIC TECH. Next Appt Details Follow Up: prn,3 Months, Crystal son: Provider Name:Héctor Clayson, 06/20/2025 12:15:00 PM, [address], [place], [address], Progress Notes * Debora RIVERA LDOB:[birth year] (69 yo F)Acc No.[id number]:03/21/2025 Progress notes Patient: Debora KHAN Provider: Ryan Medeiros MD :1955 A ge:69 Y S ex:Female Date:03/21/2025 Address:[address] [place] [address] [address], [id number] Pcp:Malena Montejo Subjective: * Chief Complaints: * 1 . Medicare wellness. * HPI: g en: Feels well following recent COPDe, no recent hospitalizations. AMWV checklist reviewed and covered smoking cessation for >5m. Spoke about increasing exercise, diet and etoh intake as well. Memory is sharp, 3/3 on words on delayed recall. See below for problem-based updates/annual care updates. * Medical History: O steopenia, LS spine bulging discs, occasional right sciatica, Tobacco use (maybe a cigarette a week), Gerd, Normal mammogram 04/2019 and 09/2022, Normal Cscope except for grade 1 diverticulosis on 09/12 - biopsy with mild collagenous colitis, Low dose CT 09/17 with birads 1 - repeat one year. * Surgical History: a rthroscopic surgery right knee 02/07/2016, oral 04/2017, rt total knee replacement 10/2017. * Hospitalization/Major Diagno stic Procedure: D enies Past Hospitalization. * Family History: F ather: , emphysema. M other: , heart disease. P aternal Grand Father: . P aternal Grand Mother: . M aternal Grand Father: . M aternal Grand Mother: . S iblings: alive. 1 brother(s) . . * Social History: S moking A re you a: c urrent smoker, H ow often do you smoke cigarettes? s ome days, but not every day, H ow many cigarettes a day do you smoke? 5 or less, A dditional Findings: Tobacco User T rivial cigarette smoker (less than one cigarette/day). R ecreational drug use: yes, marijuana. Exercise: yes. Home smoke detector use: yes. Caffeine: yes, frequency:all day. Living Will: Yes. Alcohol: socially. Travel outside [place]: no. Occupation: Retired. * Medications: T aking Ibandronate Sodium 150 MG Tablet 1 tab(s) orally once a month , Taking HAIR SKIN AND NAILS , Taking dexAMETHasone 0.5 MG/5ML Solution 5cc prn , Taking Probiotic 10 Ultra Strength , Taking Rachael Allergy , Notes to Pharmacist: prn, Taking Tums 500 MG Tablet Chewable 1 tab(s) chewed once a day , Taking Centrum Silver - Tablet Chewable 1 tab(s) chewed once a day , Taking Turmeric 500 MG Capsule 1 cap(s) orally once a day , Taking ALBUTEROL (EQV-PROVENTIL HFA) 90 MCG/INH AEROSOL 2 PUFF(S) INHALED EVERY 6 HOURS , Notes to Pharmacist: prn, Taking Losartan Potassium 50 MG Tablet 1 tab(s) orally once a day , Taking Spiriva Respimat 1.25 MCG/ACT Aerosol Solution INHALE TWO PUFFS BY MOUTH EVERY DAY , Taking Singulair 10 MG Tablet 1 tab(s) orally once a day , Taking Levothyroxine Sodium 112 MCG Tablet 1 tab(s) orally once a day , Taking Omeprazole 40 MG Capsule Delayed Release 1 cap(s) orally once a day , Taking Atorvastatin Calcium 20 MG Tablet 1 tab(s) orally once a day , Taking Albuterol Sulfate HFA 108 (90 Base) MCG/ACT Aerosol Solution 2 puffs Inhalation every 4 hrs As needed, Discontinued Doxycycline Hyclate 100 MG Tablet One tab PO twice daily , Discontinued predniSONE 20 MG Tablet 3 tabs orally once a day for two days, then 2 daily for 2 days, then one daily for two days , Discontinued Promethazine-DM 6.25-15 MG/5ML Syrup 5 mL orally every 6 hours , Medication List reviewed and reconciled with the patient * Allergies: N .K.D.A. Objective: * Vitals: N urse: jl, Pain: 0, Temp: 97.6, RR: 18, HR: 92, BP: 140/82, Ht: 5 ft 7 in, Wt: 145.8, BMI:22.83. Assessment: * Assessment: 1. O steoporosis - M81.0 (Primary) 2 . P anlobular emphysema - J43.1 ? 3 . H ypertension, essential - I10 4 . H ypothyroidism (acquired) - E03.9 5 . E ncounter for immunization - Z23 6 . H ealthcare maintenance - Z00.00 Plan: * Treatment: 2. P anlobular emphysema Notes: -last exacerbation a month ago, well recovered following steroids -using PRN albuterol 1x a month -first exacerbation in 2-3y, started w/allergy symptoms -Compliant on Spiriva 3. H ypertension, essential Increase Losartan Potassium Tablet, 100 MG, 1 tab(s), orally, once a day, 90 days, 90, Refills 1.? Notes: -BP elevated in office and on home readings- -150/140s systolic at home; as high as 160/100. -Has had a lot of stress w/sickness recently -Will double the losartan to 100mg and RTC 8 weeks w/BMP 4. H ypothyroidism (acquired) Notes: -stable on synthroid dose, TSH UTD 5. H ealthcare maintenance Notes: -Due for PCV 21, admin in office today 6. O thers Notes: -annual LDCT UTD, due in August -C-scope in 2018; due in 2028 -OV CA screening through - [facility] annual (10y going)- -pilot manager study -Mammograms: UTD as of last year, due this year -Paps: No hx of abnormal paps in several years (may have had HSV); last pap 1-2y ago. Has these done w/OPTOMETRIC TECH. * Immunizations: Prevnar PCV-21 (Pneumococcal conjugate 20) : 0.5 mL (Route: Intramuscular) given by MOON Kimball on Right Arm (Encounter for immunization) * Procedure Codes: 9 0684 PCV21 VACCINE IM, 55601 ADMINISTRATION IMMUNIZATION ONE VACCINE, G0439 ANNUAL WELLNESS VST; PPS SUBSQT VST, 1170F FUNCTIONAL STATUS ASSESSMENT, G8399 PT W/DXA DOCUMENT OR ORDER, 1123F ADVANCED DIRECTIVE - HAS A LIVING WILL, G9899 Screening diagnostic,film,digital results documented and reviewed, 3017F COLORECTAL CA SCREEN DOC REV, G8420 BMI documented as normal, no follow up required., G8510 NEGATIVE SCREENING F/U NOT REQUIRED, G9902 Pt scrn tbco and id as user, G9906 Patient identified as tobacco user received tobacco cessation intervention., G8753 Most recent systolic blood pressure >= 140mmhg, G8754 Most recent diastolic blood pressure < 90mmhg, G9744 PATIENT NOT ELIG D/T ACTIVE DX HTN * Follow Up: p rn,3 Months * * Sign off status: Completed true * Provider: Ryan Medeiros MD Date: 0 03/21/2025 Generated for Bryn montero/Janna/Farzaditting on: 0 05/02/2025 09:11 AM EDT History and Physical Notes * HPI (History of Present Illness) Category Sub-Category Detail Notes Category Not es gen Feels well following recent COPDe, no recent hospitalizations. AMWV checklist reviewed and covered smoking cessation for >5m. Spoke about increasing exercise, diet and etoh intake as well. Memory is sharp, 3/3 on words on delayed recall. See below for problem-based updates/annual care updates
--- OUTSIDE RECORDS SUMMARY | 2025-05-02 09:06 | XMS_ITS | Continuity of Care Document ---
Author Organization [facility]. If a dditional information is needed, contact Health Information Management at [phone] Address [address] [place] [address] Phone Care Team Providers Care Shift Supervisor Name Role Phone Unavailable Unavailable Unavailable Unavailable Unavailable Unavailable Unavailable Unavailable Encounters pre-admission 07-May-2017 10:00 [facility] 09-Nov-2014 Camille Beltran MD (Attending) [facility]
--- NOTE | 2025-05-02 09:08 | XR_ITS ---
FINAL REPORT CLINICAL HISTORY: SCREENING COMPARISON: 05/24/2024 FINDINGS: Using L1-4, the bone mineral density of the spine is 1.226 g/cm2, corresponding to T-score of 1.6, within normal limits but likely falsely elevated secondary to hypertrophic changes. Previously was 1.236 with a T-score of 1.7. Using the left hip, the bone mineral density of the total hip is 0.591 g/cm2, corresponding to a T-score of -2.9 which is consistent with osteoporosis. Previously was 0.596 with a T-score of -2.8. Using the right hip, the bone mineral density of the total hip is 0.614 g/cm2, corresponding to a T-score of -2.7 which is consistent with osteoporosis. Previously was 0.611 with a T-score of -2.7. FRAX not reported because some T-score at or below-2.5; patient being treated for osteoporosis. NOTE: T-score: Standard deviation compared with peak bone mass of young adult mean. *Following the recommendations of the International Society of Bone densitometry, classification of hip BMD is based on the lower of two T-scores; total hip or femoral neck. IMPRESSION: Diminished bone mineral density consistent with osteoporosis. Reviewed, Interpreted and Dictated by Gregg Sánchez MD Transcribed by Bailey Llanes Authenticated and [facility]
--- OUTSIDE RECORDS SUMMARY | 2025-05-02 09:10 | XMS_ITS | Encounter Summary ---
Author Organization [facility] Address [address] [place] [address] Care Team Providers Care Systems Manager Name Role Phone Héctor Medeiros MD Primary Care Provider Encounter Details Date Type Department Care Team (Latest Contact Info) Description 04/09/2025 Travel Social History Tobacco Use Types Packs/Day Years Used Date Smoking Tobacco: Some Days Cigarettes Passive Smoke Exposure: Current Smokeless Tobacco: Never Alcohol Use Standard Drinks/Week Comments Yes 0 (1 standard drink = 0.6 oz pur e alcohol) socially Comments Unknown Sex and Gender Information Value Date Recorded Sex Assigned at Not on file Legal Sex Female 6:34 PM EDT Gender Identity Not on file Sexual Orientation Not on file documented as of this encounter Plan of Treatment Upcoming Encounters Date Type Department Care Team (Late st Contact Info) Description 06/01/2025 8:20 AM EDT Office Visit [facility] [address] [place] [address] Gely Hyde, BIT SHARPENER [address] [address] 05/10/2026 11:30 AM EDT Ovarian Cancer Screening [facility] Gynecology [address] [facility], [address] [place] [address] documented as of this encounter Visit Diagnoses Not on filedocumented in this encounter Additional Health Concerns Assessment Noted Time A Body Mass Index follow-up plan has been documented for the patient 06/02/2024 10:04 AM EDT documented as of this encounter Care Teams Systems Manager Relationship Specialty Start Date End Date Héctor Medeiros MD [address] [place] [address] PCP - General 03/07/21 documented as of this encounter
--- OUTSIDE RECORDS SUMMARY | 2025-05-02 09:10 | XMS_ITS | Encounter Summary ---
Author Organization [facility] Address [address] [place] [address] Care Team Providers Care Lead Worker Of Housekeeping And Laundry Name Role Phone Héctor Medeiros MD Primary Care Provider [phone] Encounter Details Date Type Department Care Team (Latest Contact Info) Description 04/02/2025 Travel Social History Tobacco Use Types Packs/Day [...] Description 06/01/2025 8:20 AM EDT Office Visit [facility] [address] [place] [phone] Gely Hyde, GEEK SQUAD MANAGER [address] [address] 05/10/2026 11:30 AM EDT Ovarian Cancer Screening [facility] Gynecology [address] [facility], [address] [place] [address] documented as of this encounter Visit Diagnoses Not on filedocumented in this encounter Additional Health Concerns Assessment Noted Time A Body Mass Index follow-up plan has been documented for the patient 06/02/2024 10:04 AM EDT documented as of this encounter Care Teams Lead Worker Of Housekeeping And Laundry Relationship Specialty Start Date End Date Héctor Medeiros MD [address] [place] [address] PCP - General 03/07/21 documented as of this encounter
--- OUTSIDE RECORDS SUMMARY | 2025-05-02 09:11 | XMS_ITS | Patient Health Record ---
Author Organization [facility] Address [address] [place] [address] Care Team Providers Care Utility Gelatin Maker Name Role Phone Malena Montejo Primary Care Provider Héctor Medeiros Unavailable [phone] Migration, Provider Unavailable Unavailable Allergies No Known Allergies Results Component Value Reference Range Notes Mammogram : Bilateral Reviewed date:11/28/2024 03:03:14 PM Interpretation: Performing Lab: Notes/Report: X ray : SI Joints Reviewed date:08/03/2024 03:33:54 PM Interpretation: Performing Lab: Notes/Report: X ray : Hip, Bilateral Reviewed date:08/03/2024 01:35:16 PM Interpretation: Performing Lab: Notes/Report: X ray : Spines, Lumbar Reviewed date:08/03/2024 01:41:13 PM Interpretation: Performing Lab: Notes/Report: VITAMIN D,25-OH,TOTAL,IA (17 306) Reviewed date:01/31/2025 10:19:46 AM Interpretation: Performing Lab:CB, [facility] [id number] [facility], [facility] LLCBfrsPT[address] Nicolas Mon Notes/Report: FASTING: YES FASTING:YES NON-FASTING; NON-FASTING; NON-FASTING; NON-FASTING; NON-FAST VITAMIN D,25-OH,TOTAL,IA 47 30-100 ng/mL Vitamin D Status 25-OH Vitamin D: Deficiency: <20 ng/mL Insufficiency: 20 - 29 ng/mL Optimal: > or = 30 ng/mL For 25-OH Vitamin D testing on patients on D2-supplementation and patients for whom quantitation of D2 and D3 fractions is required, the QuestAssureD(TM) 25-OH VIT D, (D2,D3), LC/MS/MS is recommended: order code 07028 (patients >2yrs). See Note 1 Note 1 For additional information, please refer to [email or web address] [email or web address]/faq/DQT736 (This link is being provided for informational/ educational purposes only.) CBC (INCLUDES DIFF/PLT) (639 9) Reviewed date:01/31/2025 10:19:46 AM Interpretation: Performing Lab:[facility], [facility] [id number], [facility] LabsVampSE[address] Nicolas Mon Notes/Report: NON-FASTING; NON-FASTING; NON-FASTING; NON-FASTING; NON-FAST FASTING:YES FASTING: YES WHITE BLOOD CELL COUNT 8.0 3.8-10.8 Thousand/ uL RED BLOOD CELL COUNT 4.70 3.80-5.10 Million/uL HEMOGLOBIN 16.0 11.7-15.5 g/dL HEMATOCRIT 47.0 35.0-45.0 % MCV 100.0 80.0-100.0 fL MCH 34.0 27.0-33.0 pg MCHC 34.0 32.0-36.0 g/dL For adults, a slight decrease in the calculated MCHC value (in the range of 30 to 32 g/dL) is most likely not clinically significant; however, it should be interpreted with caution in correlation with other red cell parameters and the patient's clinical condition. RDW 12.3 11.0-15.0 % PLATELET COUNT 275 140-400 Thousand/uL MPV 10.3 7.5-12.5 fL ABSOLUTE NEUTROPHILS 4584 [id number] cells/uL ABSOLUTE LYMPHOCYTES 2616 850-3900 cells/uL ABSOLUTE MONOCYTES 672 200-950 cells/uL ABSOLUTE EOSINOPHILS 88 15-500 cells/uL ABSOLUTE BASOPHILS 40 0-200 cells/uL NEUTROPHILS 57.3 LYMPHOCYTES 32.7 MONOCYTES 8.4 EOSINOPHILS 1.1 BASOPHILS 0.5 COMPREHENSIVE METABOLIC PANE L (52081) Reviewed date:01/31/2025 10:19:46 AM Interpretation: Performing Lab:[facility], [facility] [address], Red[facility] LLCAfxeNX[address] Nicolas Mon Notes/Report: NON-FASTING; NON-FASTING; NON-FASTING; NON-FASTING; NON-FAST FASTING:YES FASTING: YES GLUCOSE 79 65-99 mg/dL Fasting reference interval UREA NITROGEN (BUN) 13 7-25 mg/dL CREATININE 0.76 0.50-1.05 mg/dL EGFR 85 > OR = 60 mL/min/1.73m2 BUN/CREATININE RATIO SEE NOTE: 6-22 (calc) Not Reported: BUN and Creatinine are within reference range. SODIUM 136 135-146 mmol/L POTASSIUM 4.4 3.5-5.3 mmol/L CHLORIDE 100 98-110 mmol/L CARBON DIOXIDE 26 20-32 mmol/L CALCIUM 9.1 8.6-10.4 mg/dL PROTEIN, TOTAL 6.8 6.1-8.1 g/dL ALBUMIN 4.4 3.6-5.1 g/dL GLOBULIN 2.4 1.9-3.7 g/dL (calc) ALBUMIN/GLOBULIN RATIO 1.8 1.0-2.5 (calc) BILIRUBIN, TOTAL 0.8 0.2-1.2 mg/dL ALKALINE PHOSPHATASE 98 37-153 U/L AST 17 10-35 U/L ALT 13 6-29 U/L LIPID PANEL, STANDARD (7600) Reviewed date:01/31/2025 10:19:46 AM Interpretation: Performing Lab:[facility] [id number] [facility] Nicolas Mon Notes/Report: NON-FASTING; NON-FASTING; NON-FASTING; NON-FASTING; NON-FAST FASTING:YES FASTING: YES CHOLESTEROL, TOTAL 175 <200 mg/dL HDL CHOLESTEROL 95 > OR = 50 mg/dL TRIGLYCERIDES 68 <150 mg/dL LDL-CHOLESTEROL 66 Reference range: <100 Desirable range <100 mg/dL for primary prevention; <70 mg/dL for patients with CHD or diabetic patients with > or = 2 CHD risk factors. LDL-C is now calculated using the Tamra calculation, which is a validated novel method providing better accuracy than the Friedewald equation in the estimation of LDL-C. Clifford PEREZ et al. HERMINIO. 2013;310(19): 8579-4169 (http://Upfront Chromatography.Allvoices/faq/ROU526) CHOL/HDLC RATIO 1.8 <5.0 (calc) NON HDL CHOLESTEROL 80 <130 mg/dL (calc) For patients with diabetes plus 1 major ASCVD risk factor, treating to a non-HDL-C goal of <100 mg/dL (LDL-C of <70 mg/dL) is considered a therapeutic option. THYROID PANEL WITH TSH (7444 ) Reviewed date:01/31/2025 10:19:46 AM Interpretation: Performing Lab:[facility], [facility], [facility] CenterMrefKA[address] Nicolas Mon Notes/Report: NON-FASTING; NON-FASTING; NON-FASTING; NON-FASTING; NON-FAST FASTING:YES FASTING: YES T3 UPTAKE 34 22-35 % T4 (THYROXINE), TOTAL 10.1 5.1-11.9 mcg/dL FREE T4 INDEX (T7) 3.4 1.4-3.8 TSH 0.55 0.40-4.50 mIU/L CT Scan : Chest, Lung Cancer Screening Reviewed date:09/04/2024 10:33:33 AM Interpretation: Performing Lab: Notes/Report: CT Scan : Knee, Right Reviewed date:12/22/2024 04:07:02 PM Interpretation: Performing Lab: Notes/Report: CT Scan : Knee, Right Reviewed date:12/22/2024 04:07:02 PM Interpretation: Performing Lab: Notes/Report: Medications Medication SIG (Take, Route, Frequency, Duration) Notes Start Date End Date Status ALBUTEROL (EQV-PROVENTIL HFA) 90 MCG/INH 2 PUFF(S) INHALED EVERY 6 HOURS; Duration: 30 DAYS prn 04/21/2023 Active Atorvastatin Calcium 20 mg TAKE ONE TABL ET BY MOUTH EVERY DAY; Duration: 90 Active Turmeric 500 MG 1 cap(s) orally once a day Active Losartan Potassium 100 MG 1 tab(s) orall y once a day; Duration: 90 days Active Tums 500 MG 1 tab(s) chewed once a day Active Rachael Allergy prn Acti ve Centrum Silver - 1 tab(s) chewed once a day Active HAIR SKIN AND NAILS Active Levothyroxine Sodium 112 MCG 1 tab(s) or ally once a day; Duration: 90 days Active Ibandronate Sodium 150 MG 1 tab(s) orall y once a month Active Singulair 10 MG 1 tab(s) orally once a day; Duration: 90 days Active Probiotic 10 Ultra Strength Active Spiriva Respimat 1.25 MCG/ACT INHALE TWO PUFFS BY MOUTH EVERY DAY; Duration: 90 days Active dexAMETHasone 0.5 MG/5ML 5cc prn Active Omeprazole 40 MG 1 cap(s) orally once a day; Duration: 90 days Active Albuterol Sulfate HFA 108 (90 Base) MCG/ACT 2 puffs Inhalation every 4 hrs; Duration: 30 days Active Immunizations Vaccine Route Administration Date Status Comme nts SHINGRIX IM Intramuscular 02/25/2024 Administered SHINGRIX IM Intramuscular 08/02/2024 Administered Prevnar PCV-20 (Pneumococcal conjugate 20) IM Intramuscular 01/21/2023 Administered Pneumovax 23 IM Intramuscular 01/20/2022 Administered PCV-21 (Pneumococcal conjugate 20) IM Intramuscular 03/21/2025 Administered Influenza-Fluzone 3+years (NON-MEDICARE) IM Intramuscular 08/14/2015 Administered Influenza-Fluzone 3+years (NON-MEDICARE) IM Intramuscular 06/24/2017 Administered Influenza-Fluzone 3+years (NON-MEDICARE) IM Intramuscular 08/17/2018 Administered Fluzone High Dose IM Intramuscular 08/02/2024 Administered Flublok IM Intramuscular 08/13/2020 Administered Lot # [id number] Boostrix Unknown 01/16/2013 Administered Arexvy Unknown 09/28/2023 Administered Adacel (Tdap) Unknown 03/03/2019 Administered Social History Tobacco Use: Social History [...] l cigarette smoker (less than one cigarette/day) Problems Problem Type SNOMED Code ICD Code Onset Dates Problem Status W/U Status Risk Notes Problem Panlobular emphysema (8114228) Panlobular emphysema (J43.1) Active confirmed Problem Nicotine dependence (37668580) Personal history of nicotine dependence (Z87.891) Active confirmed Problem Hypothyroidism (89030448) Hypothyroidism (acquired) (E03.9) Active confirmed Problem Vitamin D deficiency (81986216) Vitamin D deficiency (E55.9) Active confirmed Problem Osteoporosis (50447153) Osteoporosis (M81.0) Active confirmed Problem Hyperlipidemia (87780946) Hyperlipemia, idiopathic familial (E78.5) Active confirmed Problem Essential hypertension (51123423) Hypertension, essential (I10) Active confirmed Problem Acute exacerbation of chronic obstructive airways disease (855273931) COPD exacerbation (J44.1) Active confirmed Problem Arthropathy (863000345) 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) Active confirmed Problem Osteoarthritis of knee (199612023) Primary osteoarthritis of both knees (M17.0) Active confirmed Problem Osteoarthritis of knee (595360960) Primary osteoarthritis of right knee (M17.11) Active confirmed Problem Localized, primary osteoarthritis of the pelvic region and thigh (870240004) Primary osteoarthritis of right hip (M16.11) Active confirmed Problem Adult health examination (618934381) Encntr for general adult medical exam w/o abnormal findings (Z00.00) Active confirmed Problem Menopausal osteoporosis (51358596) Menopausal osteoporosis (M81.0) Active confirmed Problem Tobacco use (009704759) Tobacco use disorder (F17.200) Active confirmed Problem Artificial knee joint present (835338112172) Status post right knee replacement (Z96.651) Active confirmed Problem Artificial knee joint present (233212085794) History of knee replacement procedure of right knee (Z96.651) Active confirmed Problem Macrocytosis (52669230) Macrocytosis (D75.89) Active confirmed Problem Allergic rhinitis (50455349) Allergic rhinitis, unspecified seasonality, unspecified trigger (J30.9) Active confirmed Vital Signs Heart Rate 92 /min 03/21/2025 Temperature 97.6 degrees Fahrenheit 03/21/2025 Blood pressure diastolic 82 mm Hg 03/21/2025 Height 5 ft 7 in in 03/21/2025 Blood pressure systolic 140 mm Hg 03/21/2025 Weight 145.8 lbs 03/21/2025 BMI 22.83 kg/m2 03/21/2025 Encounters Encounter Location Date Provider Diagnosis [facility] [address] [place] [address] 01/27/2025 Provider Migration [facility] [address] [place], [place] [address] 08/02/2024 Héctor Medeiros Right hip pain M25.5 51 ; Menopausal osteoporosis M81.0 ; Personal history of nicotine dependence Z87.891 ; Immunization(s) administered Z23 and Encounter for immunization Z23 [facility] [address] [facility] [address] [place], [place] [address] 11/08/2024 Héctor Medeiros Primary osteoarthrit is of both knees M17.0 ; Status post right knee replacement Z96.651 and Primary osteoarthritis of right hip M16.11 [facility] [address] [facility] [address] [place], [place] [address] 01/29/2025 Héctor Medeiros Hyperlipemia, idiopathic familial E78.5 ; Vitamin D deficiency E55.9 ; Hypothyroidism (acquired) E03.9 ; Primary osteoarthritis of right knee M17.11 ; Hypertension, essential I10 ; Personal history of nicotine dependence Z87.891 and Osteoporosis M81.0 [facility] [address] [facility] [address] [place], [place] [address] 02/14/2025 Héctor Medeiros COPD exacerbation J44.1 and Elevated blood pressure reading in office without diagnosis of hypertension R03.0 [facility] [address] [facility] [address] [place], [place] [address] 03/21/2025 Héctor Medeiros Osteoporosis M81.0 ; Panlobular emphysema J43.1 ; Hypertension, essential I10 ; Hypothyroidism (acquired) E03.9 ; Encounter for immunization Z23 and Healthcare maintenance Z00.00 [facility] [address] [facility] [address] [place], [place] [address] 07/27/2024 [facility] [address] [facility] [address] [place], [place] [address] 11/08/2024 Malena Montejo Breast cancer screening by mammogram Z12.31 [facility] [address] [facility] [address] [place] [address] 11/28/2024 Héctor Medeiros [facility] [address] [facility] [address] [place] [address] 11/28/2024 Malena Montejo Primary osteoarthrit is of both knees M17.0 and History of knee replacement procedure of right knee Z96.651 Assessments Encounter Date Diagnosis (ICD Code) Assessment Notes Treatment Notes Treatment Clinical Notes Section Notes 08/02/2024 Right hip pain (ICD-10 - M25.551) - given history of OA and physical exam findings, pain is highly suggestive of OA. Can also consider lumbar radiculopathy given history of scoliosis and neuropathic component with movement. - has osteoporosis, on therapy. No falls. Plan - L spine and R hip XR ordered - can continue 800mg ibuprofen qhs for pain 11/08/2024 Status post right knee replacement (ICD-10 - Z96.651) Increasing instability, AP laxity, and crepitus on exam. No obvious joint effusion. Will proceed with MRI to assess integrity of the joint. Following imaging will return to ortho for reassessment. Plans for PT of right hip and knee. 11/08/2024 Breast cancer screening by mammogram (ICD-10 - Z12.31) 11/28/2024 Primary osteoarthritis of both knees (ICD-10 - M17.0) 08/02/2024 Menopausal osteoporosis (ICD-10 - M81.0) - following with bone clinic - on ibandronate monthly - no longer on vitamin D supplementation due to high-normal labs in spring11/08/2024 Primary osteoarthritis of both knees (ICD-10 - M17.0) Imaging per below with PT. 01/29/2025 Vitamin D deficiency (ICD-10 - E55.9) Following vitamin D levels given her osteoporosis and history of deficiency 01/29/2025 Hyperlipemia, idiopathic familial (ICD-10 - E78.5) LDL has been under good control historically, remains on statin therapy, will continue to follow, check labs today. Please note I will review labs personally 02/14/2025 COPD exacerbation (ICD-10 - J44.1) Symptoms consistent with COPD exasperation. Will treat with Doxycycline and steroid taper pack. Additionally will prescribe Promethazine-DM to help cough and a new Albuterol inhaler to open airways and help with shortness of breath. 02/14/2025 Elevated blood pressure reading in office without diagnosis of hypertension (ICD-10 - R03.0) Blood pressure elevated in office today. Repeat blood pressire 152/90. Instucted patient to keep weekly blood pressure log until next appt on 03/21. 03/21/2025 Panlobular emphysema (ICD-10 - J43.1) -last exacerbation a month ago, well recovered following steroids -using PRN albuterol 1x a month -first exacerbation in 2-3y, started w/allergy symptoms -Compliant on Spiriva 03/21/2025 Osteoporosis (ICD-10 - M81.0) -DEXA UTD as of April 2024, repeat in 1y -on Ibandronate monthly, cautioned on smoking cessation 03/21/2025 Hypertension, essential (ICD-10 - I10) -BP elevated in office and on home readings- -150/140s systolic at home; as high as 160/100. -Has had a lot of stress w/sickness recently -Will double the losartan to 100mg and RTC 8 weeks w/BMP 01/29/2025 Hypothyroidism (acquired) (ICD-10 - E03.9) Clinically euthyroid, will reevaluate lab testing today 11/08/2024 Primary osteoarthritis of right hip (ICD-10 - M16.11) Plans for PT to improve gait and potential referred pain. 11/28/2024 History of knee replacement procedure of right knee (ICD-10 - Z96.651) 08/02/2024 Personal history of nicotine dependence (ICD-10 - Z87.891) Patient is due for low-dose CT follow-up. Continues to smoke about half a pack a day. Meets criteria for screening. Order sent to hospital Central scheduling 08/02/2024 Immunization(s) administered (ICD-10 - Z23) 01/29/2025 Primary osteoarthritis of right knee (ICD-10 - M17.11) Stable on current medications, doing well with PT. Good functional status 03/21/2025 Hypothyroidism (acquired) (ICD-10 - E03.9) -stable on synthroid dose, TSH UTD 03/21/2025 Encounter for immunization (ICD-10 - Z23) 01/29/2025 Hypertension, essential (ICD-10 - I10) Repeated blood pressure, 136/80. No changes in plans. 08/02/2024 Encounter for immunization (ICD-10 - Z23) 01/29/2025 Personal history of nicotine dependence (ICD-10 - Z87.891) Up-to-date with low-dose CTs. 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 Has these done w/[facility]. Plan Of Treatment Pending Test Test Name Order Date MRI : Knee, Right 11/08/2024 EKG : In House 10/08/2014 Physical Therapy 10/01/2015 Cardiolite GXT 10/08/2014 C-CMP 12/23/2011 C-LIPID PANEL 12/23/2011 C-THYROID PROFILE 08/17/2018 M-Vitamin D 25 Hydroxy 2020 M-COVID WITH RESPIRATORY PANEL CBC With Platelet And Differential 12/23 Comprehensive Metabolic Panel (CMP) 10/2021 Lipid Panel 12/23/2021 TSH 12/23/2021 COMPREHENSIVE METABOLIC PANEL (REFL) (37 015) 01/21/2023 Future Test Test Name Order Date M-Complete Blood Count Auto Diff 018 M-Comprehensive Metabolic Panel 08/08/20 18 M-Thyroid Panel 08/08/2018 M-Vitamin B12 08/08/2018 Next Appt Details Provider Name:Héctor Medeiros, 06/20/2025 12:15:00 PM, [address], [place], [address], Insurance Providers Payer Name Payer Address Payer Phone Subscriber Number Group Number Insured Name Patient Relationship to Insured Coverage Start Date Coverage End Date [place]IC[place] [address] [place] [address] [id number] Debora Rivera Self - patient is the insured [facility] [address] [place] [address] [id number] Debora Rivera Self - patient is the insured [employer] [address] [place] [address] ACL Debora Rivera Self - patient is the insured Medications Administered Medication Instructions Date of Administration Dosage Notes Dexamethasone 4mg Injection 04/09/2023 4 mg Kenalog 07/13/2013 1 Kenalog 11/16/2014 1 mL Medical (General) History Medical History History ICD Code osteopenia LS spine bulging discs, occasional right sciatica tobacco use (maybe a cigarette a week) gerd Normal mammogram 04/2019 and 09/2022 Normal Cscope except for gra de 1 diverticulosis on 09/12 - biopsy with mild collagenous colitis Low dose CT 09/17 with birads 1 - repeat one year Surgical History Surgery Date(Month/Year) arthroscopic surgery right knee 02/07/20 16 oral 04/2017 rt total knee replacement 10/2017
--- OUTSIDE RECORDS SUMMARY | 2025-05-02 09:11 | XMS_ITS | Clinical Summary ---
Author Organization [facility] Address [address] [place] [address] Care Team Providers Care General Doc Name Role Phone Héctor Medeiros MD Primary Care Provider + [phone] Allergies No known active allergies Medications omeprazole (PriLOSEC) [address] capsule omeprazole 40 mg capsule,delaye d release TAKE ONE CAPSULE BY MOUTH EVERY MORNING Active clobetasol (Temovate) 0.05 % cream clobetasol 0.05 % topical cream APPLY TOPICALLY TO THE AFFECTED AREA(S) TWICE DAILY NEEDED Active calcium carbonate (Tums) 500 MG chewable tablet 1 (one) time each day at the same time. Active Turmeric 500 MG capsule 1 (one) time each day at the same time. Active Multiple Vitamins-Minerals (CENTRUM SILVER PO) Centrum Silver 0.4 mg-300 mcg-250 mcg tablet Active montelukast (Singulair) 10 MG tablet 1 (one) time each day at the same time. Active atorvastatin (Lipitor) 10 MG tablet Take 1 tablet (10 mg) by mouth 1 (one) time each day. Active losartan (Cozaar) 50 MG tablet 1 (one) time each day at the same time. Active Tiotropium [place] Monohydrate (Spiriva Respimat) 1.25 MCG/ACT aerosol solution 1 (one) time each day at the same time. 1 Active Probiotic Product (PROBIOTIC DAILY PO) Take by mouth. Activ e levothyroxine (Synthroid, Levoxyl) 112 MCG tablet 4 Active ibandronate (Boniva) 150 MG tabletIndications :Age-related osteoporosis without current pathological fracture Take 1 tablet (150 mg) by mouth every 30 (thirty) days. Take in morning with full glass of water on an empty stomach. No food, drink, meds, or lying down for 60 minutes after. 1 tablet 11 4 06/27/20 25 Active Encounters Date Type Department Care Team Description 04/09/2025 Travel 04/02/2025 Travel from Last 3 Months Immunizations Immunization Administration Dates Next Due Influenza Vaccine, Quadrival ent, Adjuvanted 09/08/2023 Influenza, injectable, MDCK, preservative free, quadrivalent 07/11/2021 Influenza, injectable, quadrivalent 08/17/2018,0 06/24/2017 Influenza, recombinant, quad rivalent, injectable, preservative free 08/13/2020 Moderna COVID-19 Vaccine (Re d Cap) 12+ years 05/13/2022,08/28/2021,01/22/2021,12/25 Pneumococcal 20-akshat Conj Vaccine 01/21/2023 Pneumococcal Polysaccharide PPV23 01/20/2022 Rsvpref, Recombinant, Protei n Subunit, Adjuvent 09/28/2023 Tdap 03/03/2019,01/16/2013 Zoster, Recombinant 02/25/2024 Family History Medical History Relation Name Comments Emphysema Father Heart disease Mother Relation Name Status Comments Father Mother Social History Tobacco Use Types Packs/Day Years Used Date Smoking Tobacco: Some Days Cigarettes Passive Smoke Exposure: Current Smokeless Tobacco: Never Tobacco Cessation:Ready to Q uit: Not Asked; Counseling Given: Not Answered Alcohol Use Standard Drinks/Week Comments Yes 0 (1 standard drink = 0.6 oz pur e alcohol) socially Comments Unknown Sex and Gender Information Value Date Recorded Sex Assigned at Not on file Legal Sex Female 6:34 PM EDT Gender Identity Not on file Sexual Orientation Not on file Last Filed Vital Signs Vital Sign Reading Time Taken Comments Blood Pressure 114/75 06/02/2024 9:38 AM EDT Pulse 59 06/02/2024 9:38 AM EDT Temperature - - Respiratory Rate - - Oxygen Saturation 95% 06/02/2024 9:38 AM EDT Inhaled Oxygen Concentration - - Weight 67.1 kg (148 lb) 06/02/2024 9:38 AM EDT Height 170.2 cm (5' 7 ) 05/10/2023 11:35 AM EDT Body Mass Index 23.18 05/10/2023 11:35 AM EDT Plan of Treatment Upcoming Encounters Date Type Department Care Team (Late st Contact Info) Description 06/01/2025 8:20 AM EDT Office Visit [facility] [address] [place] [address] Gely Hyde, RISK CONSULTANT [address] [facility] [address] [place] [address] 05/10/2026 11:30 AM EDT Ovarian Cancer Screening [facility] [address] [place] [address] Health Maintenance Due Date Last Done Comments [facility]-Bone Density Scan 1956 [facility]-Depression Screening 1956 [facility]-Hepatitis C Screening 1955 [facility]-Medicare Annual Wellness (AWV) 1955 [facility]-/Child/Adol SDOH Screenings 1956 [facility]- SDOH Screenings 1974 [facility]-Adult SDOH Screenings 1974 CT Colonography 2001 Colonoscopy 2001 FIT-DNA 2001 FIT 2001 FOBT 2001 Sigmoidoscopy 2001 [facility]-Colorectal Cancer Screening 2001 [facility]-Breast Cancer Screening 2006 [id number] Vaccine (8 - Moderna risk season) 2025 09/27/2024, 09/08/2023, 08/25/2022, Additional history exists [facility]-Influenza Vaccine (#1) 06/25/202508/02, 09/08/2023, 07/11/2021, Additional history exists [facility]-DTaP,Tdap,and Td Vaccines (3 - Td or Tdap) 03/03/2029 03/03/2019, 01/16/2013 [facility]-RSV Vaccine: 60+ Years or Completed 09/28/2023 [facility]-Zoster Vaccines Completed 08/02/2024, [facility]-Pneumococcal Vaccine: 50+ Years Completed 03/21/2025, 01/21/2023, 01/20/2022 HPV Vaccines Aged Out No longer eligi ble based on patient's age to complete this topic [facility]-HIB Vaccines Aged Out No longer e ligible based on patient's age to complete this topic [facility]-Hepatitis A Vaccines Aged Out No longer eligible based on patient's age to complete this topic [facility]-IPV Vaccines Aged Out No longer e ligible based on patient's age to complete this topic [facility]-Rotavirus Vaccines Aged Out No lo nger eligible based on patient's age to complete this topic Insurance MEDICARE [facility] Care Teams General Doc Relationship Specialty Start Date End Date Héctor Medeiros MD [address] [place] [address] PCP - General 03/07/21
== END 2025-05-02 23:59 | disposition home or self-care (01) ==
LOC: RAD 09:06
PROVIDERS: PCP Internal Medicine Adolescent Medicine; Visit Provider Nurse Practitioner
DX: M81.0 Age-related osteoporosis without current pathological fracture (principal)
CPT/HCPCS: 77080

== ENCOUNTER 2025-05-25 09:02 | Outpatient (CLI) | payer MEDICARE, SELFPAY ==
--- OUTSIDE RECORDS SUMMARY | 2025-05-25 09:04 | XMS_ITS | Continuity of Care Document ---
Author Organization [facility]. If a dditional information is needed, contact Health Information Management at [phone] Address [address] [place] [address] Phone Care Team Providers Care Media Relations Director Name Role Phone Unavailable Unavailable Unavailable Unavailable Unavailable Unavailable Unavailable Unavailable Encounters pre-admission 07-May-2017 10:00 [facility] 09-Nov-2014 Camille Beltran MD (Attending) [facility]
--- OUTSIDE RECORDS SUMMARY | 2025-05-25 09:05 | XMS_ITS | Encounter Summary ---
Author Organization [facility] Address [address] [place] [address] Care Team Providers Care Orthopedics Pediatric Physician Name Role Phone Héctor Medeiros MD Primary Care Provider [phone] Encounter Details Date Type Department Care Team [...] Description 06/01/2025 8:20 AM EDT Office Visit [facility] [address] [place] [address] Gely Hyde, MANAGER [employer] BUSINESS [address] [address] 05/10/2026 11:30 AM EDT Ovarian Cancer Screening [facility] Gynecology [address] [facility], [address] [place] [address] documented as of this encounter Visit Diagnoses Not on filedocumented in this encounter Additional Health Concerns Assessment Noted Time A Body Mass Index follow-up plan has been documented for the patient 06/02/2024 10:04 AM EDT documented as of this encounter Care Teams Orthopedics Pediatric Physician Relationship Specialty Start Date End Date Héctor Medeiros MD [address] [place] [address] PCP - General 03/07/21 documented as of this encounter
--- OUTSIDE RECORDS SUMMARY | 2025-05-25 09:05 | XMS_ITS | Encounter Summary ---
Author Organization [facility] Address [address] [place] [address] Care Team Providers Care Biology Adjunct Instructor Name Role Phone Héctor Medeiros MD Primary Care Provider [phone] Encounter Details Date Type Department Care Team [...] Description 06/01/2025 8:20 AM EDT Office Visit [facility] [address] [place] [address] Gely Hdye, TIER LIFT TRUCK OPERATOR [address] [address] 05/10/2026 11:30 AM EDT Ovarian Cancer Screening [facility] Gynecology [address] [facility], [address] [place] [address] documented as of this encounter Visit Diagnoses Not on filedocumented in this encounter Additional Health Concerns Assessment Noted Time A Body Mass Index follow-up plan has been documented for the patient 06/02/2024 10:04 AM EDT documented as of this encounter Care Teams Biology Adjunct Instructor Relationship Specialty Start Date End Date Héctor Medeiros MD [address] [place] [address] PCP - General 03/07/21 documented as of this encounter
--- OUTSIDE RECORDS SUMMARY | 2025-05-25 09:06 | XMS_ITS | Clinical Summary ---
Author Organization [facility] Address [address] [place] [address] Care Team Providers Care Round Kiln Drawer Name Role Phone Héctor Medeiros MD Primary Care Provider + [phone] Allergies No known active allergies Medications omeprazole [...] day at the same time. Active Tiotropium [place] Monohydrate (Spiriva Respimat) 1.25 MCG/ACT aerosol solution [...] Description 06/01/2025 8:20 AM EDT Office Visit [facility] [address] [place] [address] Gely Hyde, ANVIL SEATING PRESS OPERATOR [address] [facility] [address] [place] [address] 05/10/2026 11:30 AM EDT Ovarian Cancer Screening [facility] [address] [place] [address] Health Maintenance Due Date Last Done Comments [facility]-Bone Density Scan 1956 [facility]-Depression Screening 1956 [facility]-Hepatitis C Screening 1956 [facility]-Medicare Annual Wellness (AWV) 1955 [facility]-Infant/Child/Adol SDOH Screenings 1956 [facility]- SDOH Screenings 1974 [facility]-Adult SDOH Screenings 1974 CT Colonography 2001 Colonoscopy 2001 FIT-DNA 2001 FIT 2001 FOBT 2001 Sigmoidoscopy 2001 [facility]-Colorectal Cancer Screening 2001 [facility]-Breast Cancer Screening 2006 [id number] Vaccine (8 - Moderna risk season) 2025 [...] age to complete this topic Insurance MEDICARE [facility] Care Teams Round Kiln Drawer Relationship Specialty Start Date End Date Héctor Medeiros MD [address] [place] [address] PCP - General 03/07/21
--- OUTSIDE RECORDS SUMMARY | 2025-05-25 09:06 | XMS_ITS | Patient Health Record ---
Author Organization [facility] Address [address] [place] [address] Care Team Providers Care Sheet Metal Foreman Name Role Phone Malena Montejo Primary Care Provider Héctor Medeiros Unavailable [phone] Migration, Provider Unavailable Unavailable Allergies No Known Allergies Results Component Value Reference Range Notes X ray : SI Joints Reviewed date:08/03/2024 03:33:54 PM Interpretation: Performing Lab: Notes/Report: X ray : Hip, Bilateral Reviewed date:08/03/2024 01:35:16 PM Interpretation: Performing Lab: Notes/Report: X ray : Spines, Lumbar Reviewed date:08/03/2024 01:41:13 PM Interpretation: Performing Lab: Notes/Report: Mammogram : Bilateral Reviewed date:11/28/2024 03:03:14 PM Interpretation: Performing Lab: Notes/Report: CT Scan : Knee, Right Reviewed date:12/22/2024 04:07:02 PM Interpretation: Performing Lab: Notes/Report: CT Scan : Knee, Right Reviewed date:12/22/2024 04:07:02 PM Interpretation: Performing Lab: Notes/Report: CT Scan : Chest, Lung Cancer Screening Reviewed date:09/04/2024 10:33:33 AM Interpretation: Performing Lab: Notes/Report: THYROID PANEL WITH TSH (7444 ) Reviewed date:01/31/2025 10:19:46 AM Interpretation: Performing Lab:CB, [facility]-[address], [place] GaGugaMK[address] Nicolas Mon Notes/Report: NON-FASTING; NON-FASTING; NON-FASTING; NON-FASTING; NON-FAST FASTING:YES FASTING: YES T3 UPTAKE 34 22-35 % T4 (THYROXINE), TOTAL 10.1 5.1-11.9 mcg/dL FREE T4 INDEX (T7) 3.4 1.4-3.8 TSH 0.55 0.40-4.50 mIU/L LIPID PANEL, STANDARD (7600) Reviewed date:01/31/2025 10:19:46 AM Interpretation: Performing Lab:[facility] [id number], Ret[employer] EnterprisesVaneZC[address] Nicolas Mon Notes/Report: NON-FASTING; NON-FASTING; NON-FASTING; NON-FASTING; NON-FAST FASTING:YES FASTING: YES CHOLESTEROL, TOTAL 175 <200 mg/dL HDL CHOLESTEROL 95 > OR = 50 mg/dL TRIGLYCERIDES 68 <150 mg/dL LDL-CHOLESTEROL 66 Reference range: <100 Desirable range <100 mg/dL for primary prevention; <70 mg/dL for patients with CHD or diabetic patients with > or = 2 CHD risk factors. LDL-C is now calculated using the Clifford-Lugo calculation, which is a validated novel method providing better accuracy than the Friedewald equation in the estimation of LDL-C. Clifford SS et al. HERMINIO. 2013;310(19): 2385-5063 (http://education.Venddo.com/faq/EAT180) CHOL/HDLC RATIO 1.8 <5.0 (calc) NON HDL CHOLESTEROL 80 <130 mg/dL (calc) For patients with diabetes plus 1 major ASCVD risk factor, treating to a non-HDL-C goal of <100 mg/dL (LDL-C of <70 mg/dL) is considered a therapeutic option. COMPREHENSIVE METABOLIC PANE L (73077) Reviewed date:01/31/2025 10:19:46 AM Interpretation: Performing Lab:[id number] [employer], MangatarHcfqCW[address] Nicolas Mon Notes/Report: NON-FASTING; NON-FASTING; NON-FASTING; NON-FASTING; [...] 17 10-35 U/L ALT 13 6-29 U/L CBC (INCLUDES DIFF/PLT) (639 9) Reviewed date:01/31/2025 10:19:46 AM Interpretation: Performing Lab:[facility], [facility], [facility] HospitalQakkHG[address] Nicolas Mon Notes/Report: NON-FASTING; NON-FASTING; NON-FASTING; NON-FASTING; [...] MPV 10.3 7.5-12.5 fL ABSOLUTE NEUTROPHILS 4584 2100-4438 cells/uL ABSOLUTE LYMPHOCYTES 2616 850-3900 cells/uL ABSOLUTE MONOCYTES 672 200-950 cells/uL ABSOLUTE EOSINOPHILS 88 15-500 cells/uL ABSOLUTE BASOPHILS 40 0-200 cells/uL NEUTROPHILS 57.3 LYMPHOCYTES 32.7 MONOCYTES 8.4 EOSINOPHILS 1.1 BASOPHILS 0.5 VITAMIN D,25-OH,TOTAL,IA (17 306) Reviewed date:01/31/2025 10:19:46 AM Interpretation: Performing Lab:CB, [employer], [facility] HospitalAoxiPO[address] Nicolas Mon Notes/Report: NON-FASTING; NON-FASTING; NON-FASTING; NON-FASTING; NON-FAST FASTING:YES FASTING: YES VITAMIN D,25-OH,TOTAL,IA 47 30-100 ng/mL Vitamin D Status 25-OH Vitamin D: Deficiency: <20 ng/mL Insufficiency: 20 - 29 ng/mL Optimal: > or = 30 ng/mL For 25-OH Vitamin D testing on patients on D2-supplementation and patients for whom quantitation of D2 and D3 fractions is required, the QuestAssureD(TM) 25-OH VIT D, (D2,D3), LC/MS/MS is recommended: order code 84311 (patients >2yrs). See Note 1 Note 1 For additional information, please refer to http://education.FlyClip/faq/NCO273 (This link is being provided for informational/ educational purposes only.) Medications Medication SIG (Take, Route, Frequency, Duration) [...] Flublok IM Intramuscular 08/13/2020 Administered Lot # [id number] Boostrix Unknown 01/16/2013 Administered Arexvy Unknown 09/28/2023 [...] W/U Status Risk Notes Problem Panlobular emphysema (6195895) Panlobular emphysema (J43.1) Active confirmed Problem Nicotine dependence (89124061) Personal history of nicotine dependence (Z87.891) Active confirmed Problem Hypothyroidism (91363769) Hypothyroidism (acquired) (E03.9) Active confirmed Problem Vitamin D deficiency (83268767) Vitamin D deficiency (E55.9) Active confirmed Problem Osteoporosis (56220734) Osteoporosis (M81.0) Active confirmed Problem Hyperlipidemia (32131849) Hyperlipemia, idiopathic familial (E78.5) Active confirmed Problem Essential hypertension (45289142) Hypertension, essential (I10) Active confirmed Problem Acute exacerbation of chronic obstructive airways disease (132402284) COPD exacerbation (J44.1) Active confirmed Problem Arthropathy (371315438) 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) Active confirmed Problem Osteoarthritis of knee (375423878) Primary osteoarthritis of both knees (M17.0) Active confirmed Problem Osteoarthritis of knee (017992910) Primary osteoarthritis of right knee (M17.11) Active confirmed Problem Localized, primary osteoarthritis of the pelvic region and thigh (638230763) Primary osteoarthritis of right hip (M16.11) Active confirmed Problem Adult health examination (177183540) Encntr for general adult medical exam w/o abnormal findings (Z00.00) Active confirmed Problem Menopausal osteoporosis (57511405) Menopausal osteoporosis (M81.0) Active confirmed Problem Tobacco use (746855245) Tobacco use disorder (F17.200) Active confirmed Problem Artificial knee joint present (784048032020) Status post right knee replacement (Z96.651) Active confirmed Problem Artificial knee joint present (453177513115) History of knee replacement procedure of right knee (Z96.651) Active confirmed Problem Macrocytosis (57990332) Macrocytosis (D75.89) Active confirmed Problem Allergic rhinitis (39316497) Allergic rhinitis, unspecified seasonality, unspecified trigger (J30.9) Active confirmed Vital Signs Heart Rate 92 /min 03/21/2025 Temperature 97.6 degrees Fahrenheit 03/21/2025 Blood pressure diastolic 82 mm Hg 03/21/2025 Height 5 ft 7 in in 03/21/2025 Blood pressure systolic 140 mm Hg 03/21/2025 Weight 145.8 lbs 03/21/2025 BMI 22.83 kg/m2 03/21/2025 Encounters Encounter Location Date Provider Diagnosis [facility] [address] [place] [address] 01/27/2025 Provider Migration [facility] [address] [place], [place] [address] 08/02/2024 Héctor Medeiros Right hip pain M25.5 51 ; Menopausal osteoporosis M81.0 ; Personal history of nicotine dependence Z87.891 ; Immunization(s) administered Z23 and Encounter for immunization Z23 [facility] [address] [facility] [address] [place], [place] [address] 11/08/2024 Héctor Medeiros Primary osteoarthrit is of both knees M17.0 ; Status post right knee replacement Z96.651 and Primary osteoarthritis of right hip M16.11 [facility] [address] [facility] [address] [place], [place] [address] 01/29/2025 Héctor Medeiros Hyperlipemia, idiopathic familial E78.5 ; Vitamin D deficiency E55.9 ; Hypothyroidism (acquired) E03.9 ; Primary osteoarthritis of right knee M17.11 ; Hypertension, essential I10 ; Personal history of nicotine dependence Z87.891 and Osteoporosis M81.0 [facility] [address] [facility] [address] [place], [place] [address] 02/14/2025 Héctor Medeiros COPD exacerbation J44.1 and Elevated blood pressure reading in office without diagnosis of hypertension R03.0 [facility] [address] [facility] [address] [place], [place] [address] 03/21/2025 Héctor Medeiros Osteoporosis M81.0 ; Panlobular emphysema J43.1 ; Hypertension, essential I10 ; Hypothyroidism (acquired) E03.9 ; Encounter for immunization Z23 and Healthcare maintenance Z00.00 [facility] [address] [facility] [address] [place], [place] [address] 07/27/2024 [facility] [address] [facility] [address] [place], [place] [address] 11/08/2024 Malena Montejo Breast cancer screening by mammogram Z12.31 [facility] [address] [facility] [address] [place] [address] 11/28/2024 Héctor Medeiros [facility] [address] [facility] [address] [place] [address] 11/28/2024 Malena Montejo Primary osteoarthrit is of [...] can continue 800mg ibuprofen qhs for pain 08/02/2024 Menopausal osteoporosis (ICD-10 - M81.0) - following with [facility] - on ibandronate monthly - no longer on vitamin D supplementation due to high-normal labs in spring11/08/2024 Primary osteoarthritis of both knees (ICD-10 - M17.0) Imaging per below with PT. 11/08/2024 Status post right knee replacement (ICD-10 [...] osteoarthritis of both knees (ICD-10 - M17.0) 01/29/2025 Vitamin D deficiency (ICD-10 - E55.9) [...] to 100mg and RTC 8 weeks w/BMP 08/02/2024 Personal history of nicotine dependence (ICD-10 - Z87.891) Patient is due for low-dose CT follow-up. Continues to smoke about half a pack a day. Meets criteria for screening. Order sent to [facility] scheduling 01/29/2025 Hypothyroidism (acquired) (ICD-10 - E03.9) Clinically euthyroid, will reevaluate lab testing today 11/28/2024 History of knee replacement procedure of right knee (ICD-10 - Z96.651) 11/08/2024 Primary osteoarthritis of right hip (ICD-10 - M16.11) Plans for PT to improve gait and potential referred pain. 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 Has these done w/[facility] SUPERVISOR. Plan Of Treatment Pending Test Test Name [...] [address], [place], [address], Insurance Providers Payer Name Payer Address Payer Phone Subscriber Number Group Number Insured Name Patient Relationship to Insured Coverage Start Date Coverage End [place] [address] [place] [address] [id number] Debora Rivera Self - patient is the insured [facility] [address] [place] [id number] Debora Rivera Self - patient is the insured [email or web address] [address] [place] [address] ACL Debora Rivera Self - patient is [...]
[2025-05-25 09:51] LABS: Albumin Level 4.1 g/dl (3.5-5.0); Anion Gap 8.3 mEq/L (5-15); Blood Urea Nitrogen 10 mg/dl (7-17); Calcium 9.7 mg/dl (8.4-10.2); Carbon Dioxide 28 mmol/L (22.0-30.0); Chloride 102 mmol/L (98-107); Creatinine,Serum 0.70 mg/dl (0.52-1.04); Estimated Glomerular Filt Rate 83 ml/min (>60); GFR (African American) 101 ML/MIN (>60); Glucose 103 mg/dl (74-100); Phosphorous 3.6 mg/dl (2.5-4.5); Potassium 4.3 mmoL/L (3.5-5.1); Sodium 134 mmol/L (136-145)
[2025-05-25 10:08] LABS: 25-OH Vitamin D, Total 46.2 ng/mL (30-100)
== END 2025-05-25 23:59 | disposition home or self-care (01) ==
LOC: LAB 09:03
PROVIDERS: PCP Internal Medicine Adolescent Medicine; Visit Provider Nurse Practitioner
DX: M81.0 Age-related osteoporosis without current pathological fracture (principal)
CPT/HCPCS: 36415; 80069; 82306; 82523; 82570; 83937; 83970; 84080